=== PATIENT | female | born 1990 | race Caucasian/White ===

== ENCOUNTER 2016-11-25 02:53 | Emergency (ER) | payer SELFPAY ==
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
[2016-11-25 03:21] VITALS: RESP 16; TEMP 98.2
[2016-11-25] MEDS ORDERED: TDAP ADULT 0.5 ML INJ (BOOSTRIX) IM ONE (03:24)
[2016-11-25 04:50] VITALS: BP 126/88; PULSE 86; O2SAT 95
== END 2016-11-25 04:49 | disposition home or self-care (01) ==
PROC: 0HQGXZZ Repair Left Hand Skin, External Approach (ICD-10-PCS; principal; 2016-11-25)
DX: S61.215A Laceration without foreign body of left ring finger without damage to nail, initial encounter (principal); Z23 Encounter for immunization; X99.8XXA Assault by other sharp object, initial encounter; Y99.8 Other external cause status; Y93.89 Activity, other specified